=== PATIENT | female | born 1985 | race American Indian/Alaskan Native ===

== ENCOUNTER 2016-03-27 16:47 | Emergency (ER) | payer SELFPAY ==
[2016-03-27 17:57] VITALS: BP 128/78
--- NOTE | 2016-03-27 18:10 | Emergency Department Report ---
Chief Complaint: Abdominal Pain Stated Complaint: APPROX 6 WKS /ABD/BACK PAIN Time Seen by Provider: 03/27/16 18:05 - HPI History of Present Illness: 30-year-old female comes in for having pelvic pain just started this afternoon. Patient reports is worse when she gets up from sitting to standing it subsides a little bit as she moves. Patient ports that she has a positive test one week ago. She has no vaginal discharge no vaginal drainage no vaginal bleeding she does not have any vomiting but does admit to nausea. Patient is 2 para 0. Has any fever or chills - Exam Vital Signs: Vital Signs 03/27/16 17:45 Temperature 98.1 F Pulse Rate 64 Respiratory 16 Rate Blood Pressure 128/78 O2 Sat by Pulse 100 Oximetry Physical Exam: 30-year-old female she is alert and oriented. Cardiovascular S1-S2 regular rate and rhythm respiratory clear to auscultation bilaterally abdomen soft nontender nondistended bowel sounds throughout. There is no suprapubic tenderness. MSE screening note: Focused history and physical exam performed. Due to findings the following was ordered: CBC BMP UA serum ultrasound less than 14 weeks ordered. Patient be evaluated in the main ER ED Disposition for MSE Condition: Stable Instructions: Abdominal Pain (ED)
[2016-03-27 18:25] LABS: Hematocrit 44.6 % (30.3-42.9); Mean Corpuscular HGB Conc 34 % (30-34); Mean Corpuscular Hemoglobin 29 pg (28-32); Mean Corpuscular Volume 87 fl (79-97); Platelet Count 249 K/mm3 (140-440); Red Blood Count 5.12 M/mm3 (3.65-5.03); Red Cell Distribution Width 14.1 % (13.2-15.2); White Blood Count 6.8 K/mm3 (4.5-11.0)
[2016-03-27 18:45] LABS: Blood Urea Nitrogen 8 mg/dL (7-17); Carbon Dioxide 25 mmol/L (22-30); Chloride 99.2 mmol/L (98-107); Glucose 82 mg/dL (65-100); Potassium 3.9 mmol/L (3.6-5.0); Sodium 137 mmol/L (137-145)
[2016-03-27 18:48] LABS: Anion Gap 17 mmol/L
[2016-03-27 19:08] LABS: Bilirubin,Urine NEG (Negative); Blood,Urine NEG (Negative); Ketones,Urine NEG (Negative); Leukocyte Esterase,Urine NEG (Negative); Nitrite,Urine NEG (Negative); Protein,Urine <15 mg/dL mg/dL (Negative); Urobilinogen,Urine < 2.0 mg/dL (<2.0); WBC,Urine < 1.0 /HPF (0.0-6.0)
--- NOTE | 2016-03-27 20:04 | Ultrasound Report ---
FINAL REPORT EXAM: US OB < = 14 WEEKS FETUS HISTORY: pelvic pain TECHNIQUE: Ultrasound obstetrical transabdominal PRIORS: None. FINDINGS: There is gestational sac within the uterus. pole identified with crown-rump length 3.8 centimeters corresponding to an estimated gestational age is 6 weeks 0 days. Estimated date of delivery based on today's exam is 11/20/2016. cardiac activity is present with heart rate of 107 beats per minute Right ovary is 3.1 x 2.6 x 2.5 centimeters Left ovary is 2.7 x 1.4 x 1.2 centimeters Ovaries demonstrate normal echogenicity bilaterally. No free-fluid identified IMPRESSION: Single live intrauterine gestation estimated at 6 weeks 0 days
--- NOTE | 2016-03-27 20:15 | Ultrasound Report ---
FINAL REPORT EXAM: US OB TRANSVAGINAL HISTORY: pain TECHNIQUE: Ultrasound obstetrical t transvaginal PRIORS: None. FINDINGS: There is a gestational sac within the uterus. A yolk sac is identified There is a pole present measuring 3.8 millimeters corresponding to an estimated gestational age of 6 weeks 0 days with estimated date of delivery November 20, 2016 cardiac activity present with a heart rate of 107 beats per minute The right ovary measures 3.1 x 2.6 x 2.5 centimeters The left ovary measures 2.7 x 1.4 x 1.2 centimeters No free-fluid is seen within the cul-de-sac IMPRESSION: Single live intrauterine gestation estimated at 6 weeks 0 days
--- NOTE | 2016-03-28 19:01 | ED Elopement Review ---
ED Pt Elopement review - Results review Lab results: Laboratory Tests 03/27/16 03/27/16 03/27/16 18:11 18:11 18:11 WBC 6.8 RBC 5.12 H Hgb 15.0 H Hct 44.6 H MCV 87 MCH 29 MCHC 34 RDW 14.1 Plt Count 249 Sodium 137 Potassium 3.9 Chloride 99.2 Carbon Dioxide 25 Anion Gap 17 BUN 8 Creatinine 0.5 L Estimated GFR > 60 BUN/Creatinine Ratio 16.00 Glucose 82 Calcium 9.0 HCG, Quant 90748 H Urine Color Urine Turbidity Urine pH Ur Specific [place] Urine Protein Urine Glucose (UA) Urine Ketones Urine Blood Urine Nitrite Urine Bilirubin Urine Urobilinogen Ur Leukocyte Esterase Urine WBC (Auto) Urine RBC (Auto) U Epithel Cells (Auto) 03/27/16 18:41 WBC RBC Hgb Hct MCV MCH MCHC RDW Plt Count Sodium Potassium Chloride Carbon Dioxide Anion Gap BUN Creatinine Estimated GFR BUN/Creatinine Ratio Glucose Calcium HCG, Quant Urine Color Colorless Urine Turbidity Clear Urine pH 7.0 Ur Specific [place] 1.002 L Urine Protein <15 mg/dl Urine Glucose (UA) Neg Urine Ketones Neg Urine Blood Neg Urine Nitrite Neg Urine Bilirubin Neg Urine Urobilinogen < 2.0 Ur Leukocyte Esterase Neg Urine WBC (Auto) < 1.0 Urine RBC (Auto) 0.0 U Epithel Cells (Auto) 5.0 - Call Back decision Pt Call Back Decision: No action required
== END 2016-03-27 22:10 | disposition left against medical advice (07) ==
LOC: ED 16:47
DX: O26.891 Other specified pregnancy related conditions, first trimester (principal); R11.0 Nausea; R10.2 Pelvic and perineal pain; Z3A.01 Less than 8 weeks gestation of pregnancy; Z53.21 Procedure and treatment not carried out due to patient leaving prior to being seen by health care provider
CPT/HCPCS: 36415; 76801; 76817; 80048; 81001; 84702; 85027

== ENCOUNTER 2017-02-11 07:51 | Emergency (ER) | payer BC, MEDICAID ==
[2017-02-11 08:49] VITALS: BP 118/71
--- NOTE | 2017-02-11 09:19 | Emergency Department Report ---
Suture/Staple Removal - HPI Chief Complaint: Laceration/Recheck/Suture Stated Complaint: LEFT THUMB NEEDS SUTURE REMOVAL Time Seen by Provider: 02/11/17 09:12 When Sutures or Danitza Placed: 8-10 Days Ago Wound Location: L thumb ED Review of Systems ROS: Stated complaint: LEFT THUMB NEEDS SUTURE REMOVAL Other details as noted in HPI Comment: All other systems reviewed and negative Constitutional: denies: chills, fever Gastrointestinal: denies: nausea, vomiting Genitourinary: other (on cycle today ). denies: abnormal menses Skin: other (deneis drainage from suture site ). denies: change in color ED Past Medical Hx - Past Medical History Hx Hypertension: Yes (2005) Hx GERD: Yes Hx Renal Disease: No Hx Sickle Cell Disease: No Hx Headaches / Migraines: Yes (MIGRAINES) Hx Asthma: Yes (childhood, rare flares and PRN inhaler use only) Additional medical history: OBESITY - Surgical History Additional Surgical History: GASTRIC SLEEVE 09/26/14 - Social History Smoking Status: Former Smoker Substance Use Type: None - Medications Home Medications: Home Medications Medication Instructions Recorded Confirmed Last Taken Type No Known Home Medications [No 03/27/16 03/27/16 Unknown History Reported Home Medications] Suture Removal Exam - Exam General: Vital signs noted. No distress. Alert and acting appropriately. Wound: No Pathologic Erythema, No Tenderness, No Drainage, No Pus, No Wound Dehiscence Other Systems: All other systems reviewed and are unremarkable. ED Course Vital Signs 02/11/17 08:44 Temperature 98.3 F Pulse Rate 59 L Respiratory 16 Rate Blood Pressure 118/71 O2 Sat by Pulse 100 Oximetry - Reevaluation(s) Reevaluation #1: 02/11/17 09:18 3 sutures removed from left thumb without complication. wound remains in tact, no drainage. site covered with band aid - Pulse Oximetry Interpretation Digit-Finger Initial Pulse Oximetry Readin ED Recheck MDM - Differential Diagnosis Wound Recheck, Suture/Staple Removal Critical Care Time: No Critical care attestation.: If time is entered above; I have spent that time in minutes in the direct care of this critically ill patient, excluding procedure time. ED Disposition Clinical Impression: Encounter for removal of sutures Disposition: - TO HOME OR SELFCARE Is pt being admited?: No Does the pt Need Aspirin: No Condition: Stable Instructions: Suture Removal (ED) Referrals: ANUJA OLMSTEAD MD [Primary Care Provider] - 3-5 Days Time of Disposition: 09:19
== END 2017-02-11 09:28 | disposition home or self-care (01) ==
LOC: ED 07:51
DX: S61.012D Laceration without foreign body of left thumb without damage to nail, subsequent encounter (principal); X58.XXXD Exposure to other specified factors, subsequent encounter